=== PATIENT | male | born 1955 | race Caucasian/White ===

== ENCOUNTER 2021-04-29 08:18 | Emergency (ER) | payer OTHER, SELFPAY ==
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
[2021-04-29 08:35] VITALS: BP 128/77; PULSE 74; RESP 16; TEMP 36.7; O2SAT 99
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
== END 2021-04-29 10:21 | disposition home or self-care (01) ==
PROVIDERS: Emergency Provider Nurse Practitioner
DX: S82.831A Other fracture of upper and lower end of right fibula, initial encounter for closed fracture (principal); V28.0XXA Motorcycle driver injured in noncollision transport accident in nontraffic accident, initial encounter; I10 Essential (primary) hypertension; I25.2 Old myocardial infarction; Z95.5 Presence of coronary angioplasty implant and graft
CPT/HCPCS: 29515; 73610; 73630; 99204; G0463